=== PATIENT | male | born 1980 | race African-American/Black ===

== ENCOUNTER 2018-02-06 16:57 | Inpatient (IN) | payer MEDICAID ==
[~2018-02-06] VITALS: Ht 172.7 cm; Wt 77.6 kg
[~2018-02-06 16:57] MED LIST: CITA-106 PO; QUET100T PO; TRAZ-184 PO
[2018-02-06] MEDS ORDERED: LIB5 PO (18:10)
[2018-02-06 18:43] LABS: BASOPHILS % (AUTO) 2.2 % (0.0-2.0); EOSINOPHILS % (AUTO) 1.7 % (1.0-6.0); HEMATOCRIT 43.6 % (41-53); HEMOGLOBIN 14.7 g/dL (13.5-17.5); LYMPHOCYTES # (AUTO) 2.6 K/uL (1.0-4.8); LYMPHOCYTES % (AUTO) 53.2 % (22.0-44.0); MEAN CORPUSCULAR HEMOGLOBIN 29.8 pg (26.0-34.0); MEAN CORPUSCULAR HGB CONC 33.7 G/dL (31.0-37.0); MEAN CORPUSCULAR VOLUME 88 fL (80-100); MONOCYTES # (AUTO) 0.3 K/uL (0.1-1.0); MONOCYTES % (AUTO) 6.4 % (2.0-9.0); NEUTROPHILS # (AUTO) 1.8 K/uL (1.8-7.7); NEUTROPHILS % (AUTO) 36.5 % (40.0-70.0); PLATELET COUNT (AUTO) 314 K/uL (150-450); RED BLOOD CELL COUNT(AUTO) 4.92 MIL/uL (4.50-5.90); RED CELL DISTRIBUTION WIDTH 12.9 % (11.5-14.5)
[2018-02-06 18:51] LABS: ANION GAP 11 mmol/L (8-16); CALCIUM, TOTAL 8.8 mg/dL (8.8-10.5); CARBON DIOXIDE 31 mmol/L (22-29); CHLORIDE 103 mmol/L (98-107); CREATININE 1.06 mg/dL (0.60-1.30); GLOMERULAR FILTR. RATE CALC > 60 mL/min (>60); GLUCOSE,RANDOM 96 mg/dL (70-110); POTASSIUM 3.5 mmol/L (3.5-5.1); SODIUM SERUM 145 mmol/L (136-145); UREA NITROGEN, BLOOD 12 mg/dL (7-18)
[2018-02-06 18:58] LABS: ALANINE AMINOTRANSFERASE 66 U/L (12-78); ALBUMIN 3.9 g/dL (3.4-5.0); ALKALINE PHOSPHATASE 85 U/L (46-116); ASPARTATE AMINOTRANSFERASE 75 U/L (15-37); BILIRUBIN,TOTAL 0.9 mg/dL (0.1-1.0); TOTAL PROTEIN, SERUM 7.7 g/dL (6.4-8.2)
[2018-02-06 19:06] LABS: AMPHET/METH SCREEN,URINE NEGATIVE (NEGATIVE); BARBITURATE SCREEN, URINE NEGATIVE (NEGATIVE); BENZODIAZEPINES SCREEN,URINE NEGATIVE (NEGATIVE); CANNABINOID SCREEN,URINE NEGATIVE (NEGATIVE); COCAINE SCREEN,URINE NEGATIVE (NEGATIVE); METHADONE SCREEN, URINE NEGATIVE (NEGATIVE); OPIATE SCREEN,URINE NEGATIVE (NEGATIVE)
[2018-02-06 19:07] LABS: PHENCYCLIDINE SCREEN,URINE NEGATIVE (NEGATIVE)
[2018-02-07] MEDS ORDERED: ZOLPIDEM TARTRATE 10 MG TABLET PO PRN (01:15)
[2018-02-07] MEDS ORDERED: LORazepam 2 MG TABLET PO PRN ×2 (01:15→15:45)
[2018-02-07] MEDS ORDERED: ACETAMINOPHEN 325 MG TABLET PO PRN (14:30)
[2018-02-07] MEDS ORDERED: LOPERAMIDE HCL 2 MG CAPSULE PO PRN (14:30)
[2018-02-07] MEDS ORDERED: MAGNESIUM HYDROXIDE SUSPENSION 30 ML UDCUP PO PRN (14:30)
[2018-02-07] MEDS ORDERED: CloNIDine HCL 0.1 MG TABLET PO PRN (14:30)
[2018-02-07] MEDS ORDERED: IBUPROFEN 400 MG TABLET PO PRN (14:30)
[2018-02-07] MEDS ORDERED: DOCUSATE SODIUM 100 MG CAPSULE PO PRN (14:30)
[2018-02-07] MEDS ORDERED: ONDANSETRON HCL 4 MG TABLET PO PRN (14:30)
[2018-02-07] MEDS ORDERED: MAG HYDROX/AL HYDROX/SIMETH ES 30 ML SUSPENSION UDCUP PO PRN (14:30)
[2018-02-07] MEDS ORDERED: PETROLATUM,WHITE 71 GM JELLY TP PRN (14:30)
[2018-02-07] MEDS ORDERED: ALBUTEROL SULFATE HFA 90 MCG/PUFF 8 GM INHALER IH PRN (14:30)
[2018-02-07 15:11] VITALS: BP 145/78
[2018-02-07] MEDS ORDERED: DIAZEPAM 10 MG TABLET PO PRN (15:45)
[2018-02-07 16:13] VITALS: BP 139/80
[2018-02-07 16:15] VITALS: BP 126/80
[2018-02-07 17:15] VITALS: BP 139/89
[2018-02-07] MEDS: HALOPERIDOL 5 MG TABLET PO PRN (17:33)
[2018-02-07 18:15] VITALS: BP 140/89
[2018-02-07 22:16] VITALS: BP 140/88
[2018-02-08] VITALS (8 sets, daily range): BP systolic 109–136; BP diastolic 63–92
[2018-02-08] MEDS ORDERED: DIAZEPAM 10 MG TABLET PO PRN (07:00)
[2018-02-08] MEDS ORDERED: LORazepam 2 MG TABLET PO PRN (07:00)
[2018-02-08] MEDS: LORazepam 2 MG TABLET PO SCH ×4 (08:45→20:20)
[2018-02-08] MEDS ORDERED: NICOTINE 14 MG/24 HOUR PATCH TD SCH (09:00)
[2018-02-08] MEDS ORDERED: DIAZEPAM 10 MG TABLET PO SCH (09:00)
[2018-02-08 09:18] LABS: HEMOGLOBIN A1C 5.1 % (4.5-6.2)
[2018-02-08 09:33] LABS: CHOL/HDL RATIO 2.1 (4.2-7.3); THYROID STIMULATING HORMONE 0.84 uIU/mL (0.36-3.74)
[2018-02-08] MEDS: GABAPENTIN 300 MG CAPSULE PO SCH (16:19)
[2018-02-08] MEDS ORDERED: MIRTAZAPINE 15 MG TABLET PO SCH (21:00)
[2018-02-09 06:06] VITALS: BP 122/83
[2018-02-09 06:32] VITALS: BP 120/82
[2018-02-09 09:19] VITALS: BP 140/78
[2018-02-09] MEDS: GABAPENTIN 300 MG CAPSULE PO SCH ×2 (10:14→17:17)
[2018-02-09] MEDS: LORazepam 2 MG TABLET PO SCH ×4 (10:14→21:22)
[2018-02-09 14:05] VITALS: BP 140/78
[2018-02-09 16:20] VITALS: BP 125/75
[2018-02-09] MEDS: HALOPERIDOL 5 MG TABLET PO PRN (16:38)
[2018-02-09 18:06] VITALS: BP 124/91
[2018-02-09] MEDS ORDERED: MIRTAZAPINE 30 MG TABLET PO SCH (21:00)
[2018-02-10 01:14] VITALS: BP 120/81
[2018-02-10 03:49] VITALS: BP 120/81
[2018-02-10] MEDS ORDERED: DIAZEPAM 5 MG TABLET PO PRN (07:00)
[2018-02-10] MEDS ORDERED: LORazepam 1 MG TABLET PO PRN (07:00)
[2018-02-10 08:13] VITALS: BP 113/70
[2018-02-10] MEDS ORDERED: DIAZEPAM 5 MG TABLET PO SCH (09:00)
[2018-02-10] MEDS: GABAPENTIN 300 MG CAPSULE PO SCH ×2 (09:50→16:22)
[2018-02-10] MEDS: LORazepam 1 MG TABLET PO SCH ×3 (09:50→16:22)
[2018-02-10 12:56] VITALS: BP 113/70
[2018-02-10] MEDS ORDERED: MIRT30 PO (14:57)
[2018-02-10] MEDS ORDERED: GABA-531 PO (14:57)
[2018-02-11] MEDS ORDERED: DIAZEPAM 5 MG TABLET PO PRN (07:00)
[2018-02-11] MEDS ORDERED: LORazepam 1 MG TABLET PO PRN (07:00)
== END 2018-02-10 16:45 | disposition home or self-care (01) | DRG 751 ==
LOC: EMS 16:58 → B2S 02-07 13:18
PROVIDERS: ADMIT Psychiatry & Neurology Psychiatry; ATTEND Psychiatry & Neurology Psychiatry
DX: F33.2 Major depressive disorder, recurrent severe without psychotic features (principal); R45.851 Suicidal ideations; K86.1 Other chronic pancreatitis; D72.829 Elevated white blood cell count, unspecified; E87.6 Hypokalemia; F17.200 Nicotine dependence, unspecified, uncomplicated; F10.20 Alcohol dependence, uncomplicated; F41.9 Anxiety disorder, unspecified; R74.0 Nonspecific elevation of levels of transaminase and lactic acid dehydrogenase [LDH]; Z91.013 Allergy to seafood; Z91.19 Patient's noncompliance with other medical treatment and regimen; Z91.5 Personal history of self-harm
CPT/HCPCS: 83036; 84443; 99285; G0480

== ENCOUNTER 2019-12-03 22:03 | Inpatient (IN) | payer SELFPAY ==
[~2019-12-03] VITALS: Ht 182.9 cm; Wt 72.5 kg
[~2019-12-03 22:03] MED LIST changes: -CITA-106 PO; +GABA-1181 PO; +MIRT30 PO; -QUET100T PO; -TRAZ-184 PO
[2019-12-03 22:57] LABS: HEMOGLOBIN 14.6 g/dL (13.5-17.5); MEAN CORPUSCULAR HGB CONC 32.2 G/dL (31.0-37.0); PLATELET COUNT (AUTO) 279 K/uL (150-450)
[2019-12-03 23:09] LABS: HEMATOCRIT 45.3 % (41-53); MEAN CORPUSCULAR HEMOGLOBIN 29.5 pg (26.0-34.0); MEAN CORPUSCULAR VOLUME 92 fL (80-100); RED BLOOD CELL COUNT(AUTO) 4.94 MIL/uL (4.50-5.90); RED CELL DISTRIBUTION WIDTH 14.1 % (11.5-14.5)
[2019-12-03 23:11] LABS: ANION GAP 14 mmol/L (8-16); CALCIUM, TOTAL 8.7 mg/dL (8.8-10.5); CARBON DIOXIDE 27 mmol/L (22-29); CHLORIDE 103 mmol/L (98-107); CREATININE 0.74 mg/dL (0.60-1.30); GLOMERULAR FILTR. RATE CALC > 60 mL/min (>60); GLUCOSE,RANDOM 87 mg/dL (70-110); POTASSIUM 3.6 mmol/L (3.5-5.1); SODIUM SERUM 144 mmol/L (136-145); UREA NITROGEN, BLOOD 8 mg/dL (7-18)
[2019-12-03 23:27] LABS: BAND NEUTROPHILS % (MANUAL) 0 % (0-5)
[2019-12-03 23:31] LABS: BASOPHILS % (MANUAL) 1 % (0-2); EOSINOPHILS % (MANUAL) 3 % (1-6); LYMPHOCYTES % (MANUAL) 62 % (22-44); MONOCYTES % (MANUAL) 5 % (2-9); REACTIVE LYMPHOCYTES 5 % (0-0); SEGMENTED NEUTROPHILS % 24 % (40-70)
[2019-12-03 23:48] LABS: ALANINE AMINOTRANSFERASE 81 U/L (12-78); ALBUMIN 4.3 g/dL (3.4-5.0); ALKALINE PHOSPHATASE 91 U/L (46-116); ASPARTATE AMINOTRANSFERASE 92 U/L (15-37); BILIRUBIN,TOTAL 1.6 mg/dL (0.1-1.0); CREATINE KINASE, TOTAL ONLY 164 U/L (39-308)
[2019-12-04] MEDS ORDERED: SODIUM CHLORIDE 0.9% 1,000 ML IV ONE
[2019-12-04] MEDS ORDERED: 0.9% SODIUM CHLORIDE 10 ML SYRINGE IVP PRN
[2019-12-04] MEDS ORDERED: ACETAMINOPHEN 325 MG TABLET PO PRN ×2 (01:15)
[2019-12-04] MEDS ORDERED: ZOLPIDEM TARTRATE 5 MG TABLET PO PRN (01:15)
[2019-12-04] MEDS ORDERED: MAGNESIUM HYDROXIDE SUSPENSION 30 ML UDCUP PO PRN (01:15)
[2019-12-04] MEDS ORDERED: ONDANSETRON HCL 4 MG/2 ML VIAL IVP PRN ×2 (01:15)
[2019-12-04] MEDS ORDERED: BISACODYL 10 MG RECTAL RECTAL SUPPOSITORY PR PRN (01:15)
[2019-12-04 01:30] VITALS: BP 138/90
[2019-12-04 05:16] VITALS: BP 108/65
[2019-12-04 07:30] VITALS: BP 107/70
[2019-12-04] MEDS ORDERED: DOCUSATE SODIUM 100 MG CAPSULE PO SCH (09:00)
== END 2019-12-04 09:20 | disposition left against medical advice (07) | DRG 93 ==
LOC: EMS 22:04 → 5S 23:30
PROVIDERS: ADMIT Hospitalist; ATTEND Hospitalist
DX: G92 Toxic encephalopathy (principal); F10.129 Alcohol abuse with intoxication, unspecified; R74.8 Abnormal levels of other serum enzymes; Z53.29 Procedure and treatment not carried out because of patient's decision for other reasons; F31.9 Bipolar disorder, unspecified; Z91.013 Allergy to seafood; Z79.899 Other long term (current) drug therapy
CPT/HCPCS: 83735; 93005; G0480; J7030